=== PATIENT | male | born 1990 | race Caucasian/White ===

== ENCOUNTER 2017-03-24 09:39 | Emergency (ER) | payer BC ==
[2017-03-24] MEDS ORDERED: TRANEXAMIC ACID 1,000 MG/10 ML VIAL TP ONE (09:52)
--- NOTE | 2017-03-24 10:05 | EDPHY ---
H & P Time Seen by Provider: 03/24/17 09:47 HPI/ROS: CHIEF COMPLAINT: Epistaxis HISTORY OF PRESENT ILLNESS: 27-year-old male presents to the emergency department with epistaxis from the right nostril. The patient has had this typically on an annual basis. He denies any known trauma or injury. He states that he was having difficulty stopping the bleeding. He denies feeling lightheaded. Denies chest pain or difficulty breathing. He denies bleeding from his gums or easy bruising. ROS: Denies dysphagia, difficulty breathing, fever Past Medical/Surgical History: Negative Social History: Single Smoking Status: Never smoked Physical Exam: On examination the patient has no active bleeding noted currently. His vital signs are stable. He has what appears to be a superficial abrasion to Kiesselbach's plexus in the right nostril. Left nostril is clear. He has small blood in the posterior pharynx. Ears are clear bilaterally. Neck is supple without lymphadenopathy. Constitutional: Initial Vital Signs Heart Rate 77 03/24/17 09:41 Respiratory Rate 18 03/24/17 09:41 Blood Pressure 152/94 H 03/24/17 09:41 O2 Sat (%) 98 03/24/17 09:41 O2 Delivery Mode Room Air Allergies/Adverse Reactions: amoxicillin Allergy (Mild, Verified 03/24/17 09:41) Rash Home Medications: Medication Instructions Recorded NK [No Known Home Meds] 03/24/17 MDM/Departure - MDM Procedures: Procedure: Epistaxis control. After verbal consent was obtained, the anterior epistaxis was identified. The patient was treated with TXA right nostril. Following the procedure the patient was re-examined and the bleeding was well controlled. The patient tolerated the procedure well. The procedure was performed by myself. Medications Given: Discontinued Medications Diphtheria/Tetanus/Acell Pertussis (Boostrix) 0.5 ml IM .ONCE ONE Stop: 03/24/17 10:19 Last Admin: 03/24/17 10:34 Dose: 0.5 ml Tranexamic Acid (Cyklokapron) 500 mg TP EDNOW ONE Stop: 03/24/17 09:53 Last Admin: 03/24/17 09:54 Dose: 500 mg ED Course/Re-evaluation: 27-year-old male presents to the emergency department with epistaxis. This is well controlled now. Patient blew his nose and with no clots. No active bleeding noted. TXA soaked gauze was placed in the patient's right nostril, see procedure note. Patient tolerated this quite well. He had no recurring bleeding. - Depart Disposition: Home, Routine, Self-Care Clinical Impression: Epistaxis Condition: Good Instructions: Nosebleed (ED) Additional Instructions: Add nasal lubricant such as Vaseline daily to your nose as discussed. Humidifier can also help specially this time a year. Return to the emergency department if you developed recurring nose bleed or any other concerns. Referrals: Arnulfo Hamede MD [Medical Doctor] - 2-3 days, if not improved (ENT on-call)
[2017-03-24] MEDS ORDERED: TDAP ADULT 0.5 ML INJ (BOOSTRIX) IM ONE (10:18)
[2017-03-24 10:58] VITALS: BP 138/76; PULSE 81; RESP 19; TEMP 98.6; O2SAT 96
== END 2017-03-24 11:00 | disposition home or self-care (01) ==
DX: R04.0 Epistaxis (principal); Z23 Encounter for immunization

== ENCOUNTER → 2017-06-12 | Outpatient (CLI) | payer BC | LOC: BMCIMAGING 11:57 | PROVIDERS: ATTEND Emergency Medicine | DX: S93.401A Sprain of unspecified ligament of right ankle, initial encounter (principal); W19.XXXA Unspecified fall, initial encounter; Y93.02 Activity, running; R93.6 Abnormal findings on diagnostic imaging of limbs ==